=== PATIENT | male | born 1990 ===

== ENCOUNTER 2024-02-24 16:43 | Outpatient (CLI) | payer OTHER, SELFPAY ==
--- NOTE | 2024-02-24 16:30 | XR_ITS ---
Patient: HUBER GUEVARA Facility:?[facility] Patient ID:?[id number] Site Patient ID:?[id number]. Site :?1990 Study:?XRay-Extremity Right FOOT-02/24/2024 5:28:31 PM Ordering Physician:?DR OWENS Final Report: INDICATION: Arthritis. TECHNIQUE: Two views of the right foot. FINDINGS: No bone, joint, or soft tissue abnormality. No arthritis. Normal exam. Dictated by Yung Chandler MD @ 02/25/2024 10:58:22 AM Signed by:?Yung Chandler MD @02/25/2024 10:58:22 AM (Electronic Signature)
--- NOTE | 2024-02-24 16:30 | XR_ITS ---
Patient: HUBER GUEVARA Facility:?[facility] Patient ID:?[id number] Site Patient ID:?[id number]. Site :?1990 Study:?XRay-Extremity Left FOOT-02/24/2024 5:28:17 PM Ordering Physician:?DR OWENS Final Report: INDICATION: Arthritis. TECHNIQUE: Two views of the left foot. FINDINGS: No bone, joint, or soft tissue abnormality of the foot. No arthritis. Normal exam. Dictated by Yung Chandler MD @ 02/25/2024 10:57:19 AM Signed by:?Yung Chandler MD @02/25/2024 10:57:19 AM (Electronic Signature)
--- NOTE | 2024-02-24 16:30 | XR_ITS ---
Patient: HUBER GUEVARA Facility:?[facility] Patient ID:?[id number] Site Patient ID:?[id number]. Site :?1990 Study:?XRay-Extremity Right HAND-02/24/2024 5:27:17 PM Ordering Physician:?DR OWENS Final Report: INDICATION: Arthritis. TECHNIQUE: Two views of the right hand. FINDINGS: No bone, joint, or soft tissue abnormality in the right hand. No evidence for arthritis. Normal exam. Dictated by Yung Chandler MD @ 02/25/2024 10:55:03 AM Signed by:?Yung Chandler MD @02/25/2024 10:55:03 AM (Electronic Signature)
--- NOTE | 2024-02-24 16:30 | XR_ITS ---
Patient: HUBER GUEVARA Facility:?[facility] Patient ID:?[id number] Site Patient ID:?[id number]. Site :?1990 Study:?XRay-Extremity Left HAND-02/24/2024 5:27:39 PM Ordering Physician:?DR OWENS Final Report: INDICATION: Arthritis. TECHNIQUE: Three views of the left hand. FINDINGS: No bone, joint or soft tissue abnormality. No arthritis. Normal exam. Dictated by Yung Chandler MD @ 02/25/2024 10:56:22 AM Signed by:?Yung Chandler MD @02/25/2024 10:56:22 AM (Electronic Signature)
== END 2024-02-24 16:44 | disposition home or self-care (01) ==
LOC: RAD 16:45
PROVIDERS: Visit Provider Chiropractor
DX: M13.872 Other specified arthritis, left ankle and foot (principal); M13.871 Other specified arthritis, right ankle and foot; M19.042 Primary osteoarthritis, left hand; M19.041 Primary osteoarthritis, right hand
CPT/HCPCS: 73120; 73620